=== PATIENT | male | born 1970 | race Hispanic/Latino ===

== ENCOUNTER 2020-06-30 02:24 | Observation (INO) | payer BC, OTHER ==
[~2020-06-30] VITALS: Ht 165.1 cm; Wt 106.6 kg
[2020-06-30] VITALS (12 sets, daily range): BP systolic 143–166; BP diastolic 88–111
[2020-06-30] MEDS ORDERED: METOPROLOL TARTRATE INJ 1 MG/ML VIAL IV ONE (02:30)
[2020-06-30] MEDS ORDERED: ASPIRIN 81 MG CHEW TAB PO ONE (02:30)
[2020-06-30] MEDS ORDERED: NITROGLYCERIN 2% OINT 1 GM PKT TOP ONE (02:30)
--- NOTE | 2020-06-30 02:45 | Emergency Department Note ---
History of Present Illnes History of Present Illness Chief Complaint: Chest Pain History of Present Illness This is a 49 year old male c/o chest pain that started about 40 minutes ago while he was in bed. Patient states he did miss a dosage of blood pressure medication yesterday, states pain radiates to left shoulder blade. denies sob ,denies diaphoresis Historian: Patient Arrival Mode: Car Trimmer Loader Required: No Onset (how long ago): minute(s) (40) Location: substernal Quality: pain Radiation: Reports other (radiates to left shoulder blade) Severity: moderate Onset quality: sudden Duration (how long): hour(s) (30 minutes ago) Timing of current episode: constant Progression: unchanged Chronicity: new Context: Denies recent illness, Denies recent surgery, Denies recent travel, Denies trauma/injury Relieving factors: none Exacerbating factors: none Associated symptoms: Reports denies other symptoms Treatments prior to arrival: none Past Medical/Family History Physician Review I have reviewed the patient's past medical and family history. Any updates have been documented here. Past Medical History Recent Fever: No Clinical Suspicion of Infectio: No New/Unexplained Change in Ment: No Past Medical History: Hypertension Past Surgical History: None Social History Smoking Cessation: Never Smoker Alcohol Use: Occasional Family History Family history of heart diseas: Yes Other family history htn, cad Review of Systems Review of Systems Constitutional: Reports no symptoms EENTM: Reports no symptoms Cardiovascular: Reports as per HPI Respiratory: Reports no symptoms Gastrointestinal: Reports no symptoms Genitourinary: Reports no symptoms Musculoskeletal: Reports no symptoms Integumentary: Reports no symptoms Neurological: Reports no symptoms Psychological: Reports no symptoms Endocrine: Reports no symptoms Hematological/Lymphatic: Reports no symptoms Physical Exam Related Data Allergies: Coded Allergies: No Known Allergies (Unverified , 06/30/20) Triage Vital Signs Vital Signs Date Time Temp Pulse Resp B/P (MAP) Pulse Ox O2 Delivery O2 Flow Rate FiO2 06/30/20 02:29 98.3 109 20 201/137 100 Room Air Vital signs reviewed: Yes Physical Exam CONSTITUTIONAL Constitutional: Present well-developed, Present well-nourished; Absent distressed HENT HENT: Present normocephalic, Present atraumatic, Present oropharynx clear/moist, Present nose normal HENT L/R: Present left ext ear normal, Present right ext ear normal EYES Eyes: Reports PERRL, Reports conjunctivae normal NECK Neck: Present ROM normal PULMONARY Pulmonary: Present effort normal, Present breath sounds normal CARDIOVASCULAR Cardiovascular: Present regular rhythm, Present heart sounds normal, Present capillary refill normal, Present tachycardia (108) GASTROINTESTINAL Abdominal: Present soft, Present nontender, Present bowel sounds normal GENITOURINARY Genitourinary: Present exam deferred SKIN Skin: Present warm, Present dry MUSCULOSKELETAL Musculoskeletal: Present ROM normal NEUROLOGICAL Neurological: Present alert, Present oriented x 3, Present no gross motor or sensory deficits PSYCHOLOGICAL Psychological: Present mood/affect normal, Present judgement normal Results Laboratory Laboratory Laboratory Tests Test 06/30/20 02:33 White Blood Count 9.84 x10e3/uL (4.8-10.8) Red Blood Count 4.79 x10e6/uL (4.3-5.7) Hemoglobin 14.4 g/dL (14.0-18.0) Hematocrit 42.7 % (38.2-49.6) Mean Corpuscular Volume 89.1 fL (81-99) Mean Corpuscular Hemoglobin 30.1 pg (28-32) Mean Corpuscular Hemoglobin Concent 33.7 g/dL (31-35) Red Cell Distribution Width 12.2 % (11.7-14.4) Platelet Count 236 x10e3/uL (140-360) Neutrophils (%) (Auto) 54.7 % (38.7-80.0) Lymphocytes (%) (Auto) 34.6 % (18.0-39.1) Monocytes (%) (Auto) 7.8 % (4.4-11.3) Eosinophils (%) (Auto) 1.7 % (0.0-6.0) Basophils (%) (Auto) 0.4 % (0.0-1.0) Neutrophils # (Auto) 5.4 (2.1-6.9) Lymphocytes # (Auto) 3.4 (1.0-3.2) Monocytes # (Auto) 0.8 (0.2-0.8) Eosinophils # (Auto) 0.2 (0.0-0.4) Basophils # (Auto) 0.0 (0.0-0.1) Absolute Immature Granulocyte (auto 0.08 x10e3/uL (0-0.1) Prothrombin Time 13.3 seconds (11.9-14.5) Prothromb Time International Ratio 0.96 Activated Partial Thromboplast Time 35.1 seconds (23.8-35.5) D-Dimer Quantitative (PE/DVT) 0.28 ug/mLFEU (0.00-0.45) Sodium Level 139 mmol/L (136-145) Potassium Level 4.0 mmol/L (3.5-5.1) Chloride Level 100 mmol/L (98-107) Carbon Dioxide Level 25 mmol/L (22-29) Anion Gap 18.0 mmol/L (8-16) Blood Urea Nitrogen 11 mg/dL (7-26) Creatinine 1.13 mg/dL (0.72-1.25) Estimat Glomerular Filtration Rate > 60 ML/MIN (60-) BUN/Creatinine Ratio 10 (6-25) Glucose Level 130 mg/dL (74-118) Calcium Level 9.3 mg/dL (8.4-10.2) Total Bilirubin 0.4 mg/dL (0.2-1.2) Aspartate Amino Transf (AST/SGOT) 26 IU/L (5-34) Alanine Aminotransferase (ALT/SGPT) 53 IU/L (0-55) Alkaline Phosphatase 101 IU/L (40-150) Creatine Kinase 106 IU/L (30-200) Creatine Kinase MB 1.70 ng/mL (0-5.0) Troponin I 0.005 ng/mL (0-0.300) B-Type Natriuretic Peptide 24.9 pg/mL (0-100) Total Protein 8.4 g/dL (6.5-8.1) Albumin 4.2 g/dL (3.5-5.0) Globulin 4.2 g/dL (2.3-3.5) Albumin/Globulin Ratio 1.0 (0.8-2.0) Lab results reviewed: Yes Imaging Imaging results reviewed: Yes Impressions Procedure: [id number] DX/CHEST SINGLE (PORTABLE) Exam Date: 06/30/20 Exam Time: 0300 REPORT STATUS: Signed EXAMINATION: CHEST SINGLE (PORTABLE) INDICATION: Chest pain COMPARISON: None FINDINGS: TUBES and LINES: None. LUNGS: Normal lung volumes. Lungs are clear. Prominent central pulmonary vasculature. PLEURA: No pleural effusion or pneumothorax. HEART AND MEDIASTINUM: Cardiac size is mildly enlarged. BONES AND SOFT TISSUES: No acute osseous lesion. Soft tissues are unremarkable. UPPER ABDOMEN: No free air under the diaphragm. IMPRESSION: Mild cardiomegaly and pulmonary vascular congestion. Signed by: Petros Mina DO on 06/30/2020 3:33 AM Dictated By: PETROS MINA DO 2 Transcribed By: RAFIA on 06/30/20332 COPY TO: ARACELIS GEE MD~ Procedures 12 Lead ECG Interpretation ECG Interpretation : ECG: ECG 1 Trimmer Loader: Interpreted by ED physician Date: Jun 30, 2020 Time: 02:26 Rhythm: sinus tachycardia Rate: tachycardia BPM: 108 QRS axis: normal ST segments normal: Yes T waves normal: No T wave inversion: aVL, V1, V2 Q waves: III, V1 Clinical Impression: abnormal ECG Assessment & Plan Medical Decision Making MDM pt with chest pain radiating to left shoulder blade cbc, cmp, ekg, cxr, pt/ptt d-dimer, bnp, cardiac enzymes ordered to eval for my ocardial infarction, pneumonia, pulmonary embolism, pulmonary edema, electrolyte abnormality aspirin 324 mg po ordered nitropaste 1 inch to chest wall ordered lopressor 5 mg iv ordered i spoke with dr leann sams and dr angulo, place in obs Assessment & Plan Final Impression: (1) Chest pain (2) Hypertensive urgency Depart Disposition: HOME, SELF-CARE Last Vital Signs Date Time Temp Pulse Resp B/P (MAP) Pulse Ox O2 Delivery O2 Flow Rate FiO2 06/30/20 02:29 98.3 109 20 201/137 100 Room Air Medications in the ED Aspirin 324 mg ONCE ONCE PO ; Start 06/30/20 at 02:30; Stop 06/30/20 at 02:34; Status DC Nitroglycerin 1 gm ONCE ONCE TOP ; Start 06/30/20 at 02:30; Stop 06/30/20 at 02:33; Status DC Metoprolol Tartrate 5 mg ONCE ONCE IV ; Start 06/30/20 at 02:30; Stop 06/30/20 at 02:34; Status DC ARACELIS GEE MD Jun 30, 2020 02:45
[2020-06-30 02:58] LABS: BASOPHILS % 0.4 % (0.0-1.0); EOSINOPHILS # (AUTO) 0.2 (0.0-0.4); EOSINOPHILS % 1.7 % (0.0-6.0); HEMATOCRIT 42.7 % (38.2-49.6); HEMOGLOBIN 14.4 g/dL (14.0-18.0); LYMPHOCYTES # (AUTO) 3.4 (1.0-3.2); LYMPHOCYTES % 34.6 % (18.0-39.1); MEAN CORPUSCULAR HEMOGLOBIN 30.1 pg (28-32); MEAN CORPUSCULAR HGB CONC 33.7 g/dL (31-35); MEAN CORPUSCULAR VOLUME 89.1 fL (81-99); MONOCYTES # (AUTO) 0.8 (0.2-0.8); MONOCYTES % 7.8 % (4.4-11.3); NEUTROPHILS # (AUTO) 5.4 (2.1-6.9); NEUTROPHILS % 54.7 % (38.7-80.0); PLATELET COUNT 236 x10e3/uL (140-360); RED BLOOD COUNT 4.79 x10e6/uL (4.3-5.7); RED CELL DISTRIBUTION WIDTH 12.2 % (11.7-14.4)
[2020-06-30 03:09] LABS: PARTIAL THROMBOPLASTIN TIME 35.1 seconds (23.8-35.5)
[2020-06-30 03:13] LABS: INR 0.96; PROTHROMBIN TIME 13.3 seconds (11.9-14.5)
[2020-06-30 03:20] LABS: ALANINE AMINOTRANSFERASE 53 IU/L (0-55); ALBUMIN 4.2 g/dL (3.5-5.0); ALKALINE PHOSPHATASE 101 IU/L (40-150); BLOOD UREA NITROGEN 11 mg/dL (7-26); BUN/CREATININE RATIO 10 (6-25); CALCIUM 9.3 mg/dL (8.4-10.2); CARBON DIOXIDE 25 mmol/L (22-29); CHLORIDE 100 mmol/L (98-107); CREATINE KINASE 106 IU/L (30-200); CREATININE, SERUM 1.13 mg/dL (0.72-1.25); EST GLOMERULAR FILTRATION RATE > 60 ML/MIN (60-); GLUCOSE 130 mg/dL (74-118); SODIUM 139 mmol/L (136-145)
--- NOTE | 2020-06-30 03:36 | Diagnostic Imaging Report ---
EXAMINATION: CHEST SINGLE (PORTABLE) INDICATION: Chest pain COMPARISON: None FINDINGS: TUBES and LINES: None. LUNGS: Normal lung volumes. Lungs are clear. Prominent central pulmonary vasculature. PLEURA: No pleural effusion or pneumothorax. HEART AND MEDIASTINUM: Cardiac size is mildly enlarged. BONES AND SOFT TISSUES: No acute osseous lesion. Soft tissues are unremarkable. UPPER ABDOMEN: No free air under the diaphragm. IMPRESSION: Mild cardiomegaly and pulmonary vascular congestion. Signed by: Petros Mina DO on 06/30/2020 3:33 AM
[2020-06-30] MEDS ORDERED: METOPROLOL TARTRATE 25 MG TAB PO SCH (03:45)
[2020-06-30] MEDS ORDERED: MORPHINE SULFATE 2 MG/ML SYR 1ML IV PRN (03:45)
[2020-06-30] MEDS ORDERED: SODIUM CHLORIDE FLUSH 10 ML SYR INJ PRN (03:45)
[2020-06-30] MEDS ORDERED: ONDANSETRON HCL INJ 2MG/ML 2ML 2 MG/ML VIAL IV PRN (03:45)
--- OUTSIDE RECORDS SUMMARY | 2020-06-30 03:54 | XMS REPORT | Continuity of Care Document ---
Author Author [facility] Organization [facility] Address [address] [place] [id number] Phone Unavailable Care Team Providers Care Historic Site Administrator Name Role Phone Yann GEE Attphys Unavailable Problems This patient has no known problems. Allergies, Adverse Reactions, Alerts This patient has no known allergies or adverse reactions. Medications This patient has no known medications. Procedures This patient has no known procedures. Results Test Description Test Time Test Comments Results Result Comments Source CHEST SINGLE (PORTABLE) 2020-06-30 03:32:00 [place] [address] Patient Name: TORI DYER MR #: [id number] : 1970 Age/Sex: 49/M Req #: [id number] Adm Physician: Ordered by: ARACELIS GEE MD Report #: [id number] Location: ER Room/Bed: Procedure: [id number] DX/CHEST SINGLE (PORTABLE) Exam Date: 06/30/20 Exam Time: 0300 REPORT STATUS: Signed EXAMINATION: CHEST SINGLE (PORTABLE) INDICATION: Chest pain COMPARISON: None FINDINGS: TUBES and LINES: None. LUNGS: Normal lung volumes. Lungs are clear. Prominent central pulmonary vasculature. PLEURA: No pleural effusion or pneumothorax. HEART AND MEDIASTINUM: Cardiac size is mildly enlarged. BONES AND SOFT TISSUES: No acute osseous lesion. Soft tissues are unremarkable. UPPER ABDOMEN: No free air under the diaphragm. IMPRESSION: Mild cardiomegaly and pulmonary vascular congestion. Signed by: Petros Mina DO on 06/30/2020 3:33 AM Dictated By: PETROS MINA DO 2 Transcribed By: RAFIA on 06/30/20332 COPY TO: ARACELIS GEE MD
[2020-06-30] MEDS: NITROGLYCERIN 2% OINT 1 GM PKT TOP SCH ×2 (04:08→12:49)
--- NOTE | 2020-06-30 05:00 | NUR ---
Pt admitted to room 286 via WC from home. Pt c/o continuous aching chest pain that radiated to left shoulder at home 40 mins. before coming to hospital. Pt denies pain at this time. Pt alert and oriented to name, hospital, time, and diagnosis: CP, hypertensive crisis. Pt skin dry and intact. Pt lungs CTA. Ambulatory steady. Pt last BM 06/29, denies dysuria. Pt oriented to room, bed low and locked, call light within reach. Pt goal is SHANEKA management to prevent chest pain. Discussed Transition of Care folder Pt active to learning.
[2020-06-30] MEDS ORDERED: LISINOPRIL-HCT1 EACH PO (05:04)
[2020-06-30] MEDS ORDERED: ASPIRIN 81 MG ENTERIC COATED PO SCH (09:00)
--- NOTE | 2020-06-30 09:00 | NUR ---
BEDSIDE SHIFT REPORT RECEIVED FROM THE DAY SHIFT [employer]ELATIN MAKER [employer]. EDUCATED PT ABOUT FALL PRECAUTIONS. PT VERBALIZED UNDERSTANDING. CALL LIGHT WITH IN EASY REACH. BED IS LOW AND LOCKED. SIDE RAILS X2. ALL SAFETY MEASURES IN PLACE. PT IS ON NPO. PT DENIES NEEDS AT THIS TIME.
[2020-06-30 09:02] LABS: CREATINE KINASE MB 3.4 ng/mL (0-5.0)
[2020-06-30] MEDS ORDERED: CLOPIDOGREL BISULFATE 75 MG TAB PO ONE (09:30)
[2020-06-30] MEDS ORDERED: SODIUM CHLORIDE 0.9% 1000ML 1,000 ML IV SCH (09:30)
--- NOTE | 2020-06-30 09:57 | NUR ---
PT OFF UNIT TO ZOOLOGY TECHNICAL OFFICER FOR PROCEDURE IN SAFE CONDITION.
--- NOTE | 2020-06-30 10:01 | Consultation ---
DATE OF CONSULTATION: Cardiac Consultation REASON FOR CONSULTATION: Acute coronary syndrome, rule out myocardial infarction. HISTORY OF PRESENT ILLNESS: A 49-year-old gentleman, very active. He is known to have hypertension, hypercholesteremia, on lisinopril. Yesterday, he had severe retrosternal chest pain radiating to his back, to his jaw, it was very severe, 7/10. He came to the emergency room. His EKG showed T-wave changes in the lateral leads. His blood pressure was elevated with this pain. The patient continued to have intermittent chest pain. His first set of cardiac enzyme is normal. Cardiac consultation is obtained. Beside the patient's symptoms of chest pressure, chest tightness, he said recently his stamina is a little bit decreased with easy fatigability, but is still able to do his work and he can space himself. He had this chest pain severely yesterday. There is no orthopnea, no paroxysmal nocturnal dyspnea. He snores at night. There is no cough. No recent flu-like illness. No COVID exposures. REVIEW OF SYSTEMS: Done to all 14 systems, will be summarized for clarity. GENERAL: No fever. No chills. HEENT: No vision problem. No hearing problem. PULMONARY: No cough. No hemoptysis. CARDIAC: As per acute illness. GI: No hematemesis. No melena. No GERD symptoms. No constipation. No diarrhea. : No hematuria. No dysuria. MUSCULOSKELETAL: No aches. No pain. NEUROLOGICAL: No weakness. No seizure activity. HEMATOLOGY: No easy bruising or bleeding. ENDOCRINE: No diabetes mellitus. No heat or cold intolerance. SKIN: No rashes. SOCIAL HISTORY: He is . There is nonsmoker. Social alcohol drinker. 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 HOME MEDICATIONS: Lisinopril 20 mg a day. ALLERGIES: NONE. PAST MEDICAL HISTORY: Hypertension and hypercholesteremia, on no medication. PAST SURGICAL HISTORY: No surgeries. FAMILY HISTORY: Father of stomach cancer at age 62. Mother doing well at age 77. Three siblings, one brother, two sisters, one of them is hypertensive. Three children; one son, two daughters are healthy. PHYSICAL EXAMINATION: VITAL SIGNS: Height of 5 feet 5 inches, weight of 235 pounds. Blood pressure 140/90, heart rate of 80, respiratory rate of 18. HEENT: Pupils are equal and reactive. NECK: No elevation of jugular venous pulsation. No bruit. CHEST: Clear to auscultation and percussion. HEART: PMI 5th left intercostal space. Normal first and second heart sound. ABDOMEN: Soft with good bowel sounds. No organomegaly. No abdominal bruits. EXTREMITIES: No cyanosis, no clubbing, no edema. NEUROLOGIC: Awake, alert, and oriented. No motor or sensory deficits. LABORATORY DATA: Sodium of 39, potassium of 4, BUN of 11, creatinine of 1.1. White blood cell count of 9.8, hemoglobin of 14.4, hematocrit 42%, and platelet count of 236,000. EKG normal sinus rhythm, T-wave inversion in the lateral leads. Chest x-ray showed mild cardiomegaly and prominent marking. IMPRESSION: 1. Acute coronary syndrome, pending myocardial infarction chest pain. 2. Hypertension. 3. Hypercholesteremia. 4. Obesity. PLAN: The patient will be on beta-master, aspirin, and Plavix. We will check his lipid profile. We will repeat cardiac enzymes. Options of workup are discussed. The patient will be scheduled for cardiac catheterization with possible intervention. Procedure, risks, benefits are discussed and explained. MD FREDERICK Lagos/TOMASL /[id number]
[2020-06-30 10:05] LABS: CHOL/HDL RATIO 4.5 (3.9-4.7)
[2020-06-30] MEDS ORDERED: MIDAZOLAM HCL 2 MG/2 ML VIAL ONE (10:15)
[2020-06-30] MEDS ORDERED: FENTANYL CITRATE/PF 100MCG/2 ML INJ ONE (10:15)
[2020-06-30] MEDS ORDERED: LIDOCAINE HCL 2% LOCAL 20 ML VIAL ONE (10:15)
[2020-06-30] MEDS ORDERED: SODIUM CHLORIDE 0.9% 1000ML 1,000 ML ONE (10:16)
[2020-06-30] MEDS ORDERED: HEPARIN SOD/SOD CHLORIDE 2,000 ML ONE (10:16)
[2020-06-30] MEDS ORDERED: IOPAMIDOL 370 MG/ML 200 ML INFUS..BTL INJ ONE (10:16)
[2020-06-30] MEDS ORDERED: HYDRALAZINE HCL 20 MG/ML VIAL ONE (10:44)
--- NOTE | 2020-06-30 10:57 | NUR ---
1057a Received pt to room X10, Identiferx2,bedside report received from FREDY River. Alert oriented and appropriate, PERRLA, respirations even and unlabored to room air. Pulses x4 extremities equal and strong. Pedal pulses PT/DP X4 and marked. Cap fill brisk < 3 sec. Rt Groin vascade approach No gross issues pain,pallor pressure or dysrhythmia. Skin warm and dry integrity appears D/I. IV 20g to left ac at 100cchr, presents healthy w/o s/s of infiltration or complaint. Abdomen soft and supple. pt offered toileting, denies need to urinate or defecate. No personal affects with patient. Family on way Special accommodation requesting for visitation due to pt upgraded level of care to [facility] for CABG Dr Rankin. Pt and family( given info to pt by Dr Sherman) verbalizes understanding of POC. Currently w/o complaint of pain or need. product blending supervisor notified necessity of MOT for transfer Stiven DANIEL. shashank/fredy
--- NOTE | 2020-06-30 11:34 | NUR ---
7380a Phoned report to Isai DANIEL aware of pt status and necessity for transfer to [facility] Rt groin noted no bleeding on way from home. Accommodation for visitors accompiance to floor care being verified by hospital administration ds/rn
--- NOTE | 2020-06-30 12:05 | NUR ---
1910 final report to Bedside nurse left ac intact at 100cchr. Rt groin site No gross issues pain pallor pressure ok to escort to floor care ds/rn
--- NOTE | 2020-06-30 12:21 | NUR ---
PT IS BACK TO THE UNIT FROM SENIOR SQL DATABASE DEVELOPER. RIGHT GROIN SITE IS CDI. PT IS AAOX4. IS T BEDSIDE WITH SPECIAL PERMISSION FROM NUMBERER AND WIRER. PT DENIES NEEDS AT THIS TIME.
--- NOTE | 2020-06-30 12:22 | NUR ---
TRANSFER PT TO [facility] PER DR. CARSON.
--- NOTE | 2020-06-30 12:25 | NUR ---
[facility] AND GIVEN REPORT TO TANVI DANIEL. PT IS TRANSFERRING TO RM 1414. UPDATED THE SAME TO KITCHEN SUPERVISOR, PT AND AT BEDSIDE.
--- NOTE | 2020-06-30 12:30 | NUR ---
OCCULT BLOOD STOOL PENDING. PT IS AWARE. NO BM YET.
--- NOTE | 2020-06-30 12:40 | NUR ---
PAGED DR. CARSON AND REPORTED PT BLOOD PRESSURE 164/104. NO NEW ORDERS RECEIVED.
--- NOTE | 2020-06-30 12:55 | NUR ---
PAGED DOPPLER TECH AND INFORMED THE NEED OF URGENT CAROTID DOPPLER ORDER.
--- NOTE | 2020-06-30 13:00 | NUR ---
DR. DELGADO IS OKAY TO TRANSFER PT TO [facility]
--- NOTE | 2020-06-30 13:03 | Operative Report ---
DATE OF PROCEDURE: 06/30/2020 SURGEON: Virgie Pacheco MD TITLE OF THE PROCEDURE: Left cardiac catheterization. INDICATIONS: Acute coronary syndrome. TECHNICAL DETAILS: After the usual sterile preparation and draping procedure, intravenous Versed and fentanyl given for sedation, local xylocaine for anesthesia. A 4-Serbian sheath established in place, Lang left five and 3DRC catheter to engage the coronaries. Pigtail for hemodynamic measurement and left ventriculogram. At the end of the procedures closure device was deployed VASCADE 5-Serbian. This was deployed successfully. There were no complication no blood loss. RESULTS: A. coronary angiogram: 1. Left main: Free of disease. 2. LAD: There is 80% diagonal lesion. There is 90% mid LAD lesion. 3. Circumflex coronary artery: Large obtuse marginal with 80% lesion. 4. Right coronary artery 95% mid RCA lesion, hazy. There is 80% lesion at the bifurcation and origin of the PDA. There is also another lesion in the mid PDA at 70%. a. Hemodynamic: 5. Aorta pressure 180/100. 6. LV pressure 180/23. a. Left ventriculogram in the right anterior oblique view showed normal size ventricle with an ejection fraction of 55%. IMPRESSION: Complex three-vessel coronary artery disease as described above. COMPLICATIONS: None. BLOOD LOSS: None. RECOMMENDATION: Coronary artery bypass surgery to LAD, diagonal, first obtuse marginal, PLV and PDA. Case discussed with Dr. Jaren Rankin, he kindly accepted the patient to be transferred to [facility]. Virgie Pacheco MD MOJ/MODL /[id number]
--- NOTE | 2020-06-30 13:48 | NUR ---
PT TRANSFERRED TO [facility] VIA [facility]. WAS PRESENT AT BEDSIDE. PT IS AAOX4. TELE REMOVED. IV IN PLACE FOR FUTURE USE AT [facility]. DISCHARGE INSTRUCTIONS GIVEN AND PT VERBALIZED UNDERSTANDING. PT DENIED FURTHER NEEDS.
[2020-07-01] MEDS ORDERED: CLOPIDOGREL BISULFATE 75 MG TAB PO SCH (09:00)
== END 2020-06-30 13:52 | disposition short-term general hospital (02) ==
LOC: ER 03:05 → ERHOLD 03:44 → MED/SURG3 04:25
DX: I24.9 Acute ischemic heart disease, unspecified (principal); Z11.59 Encounter for screening for other viral diseases; I10 Essential (primary) hypertension; E78.00 Pure hypercholesterolemia, unspecified; E66.9 Obesity, unspecified; Z68.39 Body mass index [BMI] 39.0-39.9, adult; I25.10 Atherosclerotic heart disease of native coronary artery without angina pectoris; Z01.812 Encounter for preprocedural laboratory examination
CPT/HCPCS: 36415; 71045; 80053; 80061; 82550; 82553; 82948; 83880; 84484; 85025; 85379; 85610; 85730; 93005; 93306; 93458; 96374; 99284; C1760; C1766; C1887; G0378; J0360; J2001; J2250; J3010; J7030; Q9967; U0002; 45380; 99152; 99153

== ENCOUNTER 2024-12-06 00:03 | Emergency (ER) | payer BC, OTHER ==
[~2024-12-06] VITALS: Ht 165.1 cm; Wt 106.6 kg
[~2024-12-06 00:03] MED LIST: LISINOPRIL-HCT1 EACH PO
[2024-12-06 00:42] LABS: BASOPHILS % 0.1 % (0.0-1.0); EOSINOPHILS # (AUTO) 0.1 (0.0-0.4); EOSINOPHILS % 0.5 % (0.0-6.0); HEMATOCRIT 44.8 % (38.2-49.6); HEMOGLOBIN 14.3 g/dL (14.0-18.0); LYMPHOCYTES # (AUTO) 1.7 (1.0-3.2); LYMPHOCYTES % 10.6 % (18.0-39.1); MEAN CORPUSCULAR HEMOGLOBIN 31.4 pg (28-32); MEAN CORPUSCULAR HGB CONC 31.9 g/dL (31-35); MEAN CORPUSCULAR VOLUME 98.2 fL (81-99); MONOCYTES # (AUTO) 1.5 (0.2-0.8); MONOCYTES % 8.8 % (4.4-11.3); NEUTROPHILS # (AUTO) 13.1 (2.1-6.9); NEUTROPHILS % 79.5 % (38.7-80.0); PLATELET COUNT 222 x10e3/uL (140-360); RED BLOOD COUNT 4.56 x10e6/uL (4.3-5.7); RED CELL DISTRIBUTION WIDTH 11.4 % (11.7-14.4); WHITE BLOOD COUNT 16.49 x10e3/uL (4.8-10.8)
[2024-12-06 01:04] LABS: LIPASE 25 U/L (8-78)
[2024-12-06 01:06] LABS: ALBUMIN 4.2 g/dL (3.5-5.0); ALBUMIN/GLOBULIN RATIO 1.1 (0.8-2.0); ANION GAP 17.8 mmol/L (8-16); CALCIUM 9.5 mg/dL (8.4-10.2); CREATININE, SERUM 1.52 mg/dL (0.72-1.25); POTASSIUM 3.8 mmol/L (3.5-5.1)
[2024-12-06 01:13] LABS: TROPONIN I < 0.001 ng/mL (0-0.300)
[2024-12-06] MEDS ORDERED: PANTOPRAZOLE SO40 MG PO (01:53)
[2024-12-06 02:04] VITALS: PULSE 62; RESP 16; TEMP 98; O2SAT 96
== END 2024-12-06 02:04 | disposition home or self-care (01) ==
LOC: ER 00:10
DX: R10.13 Epigastric pain (principal); K29.70 Gastritis, unspecified, without bleeding; I10 Essential (primary) hypertension; R73.9 Hyperglycemia, unspecified; E78.5 Hyperlipidemia, unspecified; Z79.82 Long term (current) use of aspirin; R94.31 Abnormal electrocardiogram [ECG] [EKG]; Z95.1 Presence of aortocoronary bypass graft
CPT/HCPCS: 36415; 80053; 83690; 84484; 85025; 93005; 99284; J2470